=== PATIENT | male | born 1940 | race Two or more races ===

== ENCOUNTER → 2023-09-18 | Day surgery (SDC) | payer MEDICARE, MEDICAID ==
[~2023-09-18] VITALS: Ht 172.7 cm; Wt 71.7 kg
[~2023-09-18] MED LIST: ACETAMINOPHEN 325MG TABLET PO PRN; AMLO5TAB88 PO; ASPI-1497 PO; ATORVASTATIN CALCIUM 40MG TABLET PO SCH; ATROPINE SULFATE 1MG/10ML SYR IV PRN; CLOP-31 PO; CRES10 PO; EPOETIN ALFA-EPBX 10,000 UNIT/ML VIAL SUBCUT NR; FINA5TAB11 PO; LISI10TA26 PO; METO-385 PO; METOPROLOL TARTRATE 50MG TABLET PO SCH
== END | disposition home or self-care (01) ==
LOC: CCL 09:18
PROVIDERS: ATTEND Specialist
DX: I25.10 Atherosclerotic heart disease of native coronary artery without angina pectoris (principal); I10 Essential (primary) hypertension; E78.5 Hyperlipidemia, unspecified; Z79.82 Long term (current) use of aspirin; Z79.899 Other long term (current) drug therapy
CPT/HCPCS: 93458; C1893; C1725; C1769 ×2; J0885; Z7610 ×7; C1887; 99152; G0500

== ENCOUNTER → 2023-10-09 | Outpatient (CLI) | payer MEDICARE, MEDICAID ==
[~2023-10-09] MED LIST changes: -ACETAMINOPHEN 325MG TABLET PO PRN; +ASCO-339 PO; -ATORVASTATIN CALCIUM 40MG TABLET PO SCH; -ATROPINE SULFATE 1MG/10ML SYR IV PRN; -EPOETIN ALFA-EPBX 10,000 UNIT/ML VIAL SUBCUT NR; +FERR325T6 PO; -METOPROLOL TARTRATE 50MG TABLET PO SCH
[2023-10-09 10:59] LABS: BASOPHILS % 0.9 % (0.0-2.0); EOSINOPHILS % 4.3 % (0.0-5.0); HEMATOCRIT. 48.5 % (42.0-52.0); HEMOGLOBIN. 16.5 g/dL (14.0-18.0); LYMPHOCYTES % 23.4 % (20.0-50.0); MEAN CORPUSCULAR HEMOGLOBIN 30.9 pg (28.0-32.0); MEAN CORPUSCULAR HGB CONC 33.9 g/dL (31.0-37.0); MEAN CORPUSCULAR VOLUME 91.2 fL (80.0-94.0); MEAN PLATELET VOLUME 7.2 fl (7.4-10.4); MONOCYTES % 11.4 % (2.0-8.0); PLATELET 211 x1000/uL (130-400); RED BLOOD CELL COUNT 5.32 mill/uL (4.7-6.1); RED CELL DISTRIBUTION WIDTH 13.5 % (11.6-14.6); WHITE BLOOD COUNT 5.7 x1000/uL (4.5-11.0)
[2023-10-09 11:09] LABS: PARTIAL THROMBOPLASTIN TIME 45.8 sec (23.4-31.0); PROTHROMBIN TIME 11.4 sec (9.6-11.0)
[2023-10-09 11:14] LABS: CLARITY URINE CLEAR (CLEAR); COLOR URINE YELLOW (YELLOW); GLUCOSE URINE NEGATIVE (NEGATIVE); KETONES URINE NEGATIVE (NEGATIVE); LEUKOCYTE ESTERASE URINE 1+ (NEGATIVE); NITRITE URINE NEGATIVE (NEGATIVE); OCCULT BLOOD URINE NEGATIVE (NEGATIVE); PROTEIN URINE NEGATIVE (NEGATIVE); SPECIFIC GRAVITY URINE 1.017 (1.005-1.030)
[2023-10-09 11:22] LABS: ALANINE AMINOTRANSFERASE 19 IU/L (10-49); ALBUMIN 4.3 g/dL (3.2-4.8); ASPARTATE AMINOTRANSFERASE 22 IU/L (<34); BILIRUBIN TOTAL 0.7 mg/dL (0.1-1.0); CALCIUM 9.7 mg/dL (8.7-10.4); CARBON DIOXIDE 29 mEq/L (21-32); CHLORIDE 106 mEq/L (98-107); GLUCOSE 101 mg/dL (70-105); POTASSIUM 3.8 mEq/L (3.5-5.1); PROTEIN TOTAL 7.6 g/dL (6.0-8.3); SODIUM 141 mEq/L (136-145); THYROID STIMULATING HORMONE 0.95 uIU/mL (0.55-4.78); UREA NITROGEN BLOOD 11 mg/dL (9-23)
[2023-10-09 12:10] LABS: FINE GRANULAR CASTS URINE 0-5 /lpf; HYALINE CASTS URINE 0-5 /lpf; MUCUS URINE 2+ /lpf (NONE/TRACE)
[2023-10-09 12:11] LABS: RBC URINE 0-2 /hpf (0-2); WBC URINE 0-2 /hpf (0-2)
[2023-10-09 12:13] LABS: BACTERIA URINE NONE SEEN; SQUAMOUS EPITHELIAL CELL URINE RARE /lpf (RARE/1+)
== END | disposition home or self-care (01) ==
LOC: PVL 09:44
PROVIDERS: ATTEND Thoracic Surgery (Cardiothoracic Vascular Surgery)
DX: Z01.818 Encounter for other preprocedural examination (principal); I25.10 Atherosclerotic heart disease of native coronary artery without angina pectoris; Z79.899 Other long term (current) drug therapy
CPT/HCPCS: 36415; 71045; 80053; 81003; 83036; 83735; 84443; 85025; 86850; 86900; 87426; 93880; 94010